=== PATIENT | female | born 1985 | race Hispanic/Latino ===

== ENCOUNTER → 2017-03-20 | Day surgery (SDC) | payer OTHER ==
[2017-03-20] VITALS (9 sets, daily range): BP systolic 102–121; BP diastolic 38–94; PULSE 73–107; RESP 14–18; O2SAT 98–100
[~2017-03-20] VITALS: Ht 152.4 cm; Wt 69.2 kg
[~2017-03-20] MED LIST: Bupivacaine-MPF 0.5% 30 mL Inj INFILTRATE ONE; CeFAZolin Inj 2 GM in Dextrose 5% 50 ML IV ONE; CeFAZolin Inj 2 gm / 50mL D5W IV ONE; Dexamethasone 4 mg/mL Inj IVPUSH PRN; Dexamethasone 4 mg/mL Inj ONE; EPHEDrine Sulfate 50 mg/mL Inj IVPUSH PRN; Gentamicin 40 mg/mL 2 mL Inj IRRIGATION ONE; HYDROmorphone 1 mg/mL Inj IVPUSH PRN; Lactated Ringer's 1,000 ML IV SCH; Lactated Ringer's 500 ML IV PRN; Lidocaine 1%-Epi 1:100,000 20 mL Inj INFILTRATE ONE; MetoCLOpramide 5 mg/mL 2 mL Inj IVPUSH PRN; MetoCLOpramide 5 mg/mL 2 mL Inj ONE; OMEP20TA86 PO; Ondansetron 2 mg/mL 2 mL Inj IVPUSH PRN; Ondansetron 2 mg/mL 2 mL Inj ONE; Phenylephrine 10,000 mCg/mL Inj IVPUSH PRN; Propofol 10,000 mCg/mL 20 mL Inj ONE; fentaNYL-PF 50 mCg/mL 2 mL Inj IVPUSH PRN; oxyCODONE-Acetamin 5-325 mg Tablet PO PRN
[2017-03-20] MEDS: Lactated Ringer's 1,000 ML IV SCH ×2 (09:22→11:55)
--- NOTE | 2017-03-20 11:38 | PCM.HPANE ---
Patient Data Surgeon Admitting Provider: Attending Provider:Tirso Johnson DPM Primary Care Physician:Lisa Sutherland MD Other Provider:Martha Lanceingham Anesthesia Reason for Visit Plantar Fasciitis Left Foot, Left Fastrocnemius Eq Ht/WT & BMI Height (Feet): 5 Height (Inches): 0 Weight (Kilograms): 69.2 Body Mass Index 29.00 Allergies Coded Allergies: No Known Allergies (Verified Allergy, Mild, 03/20/17) Past Anesthesia History Anesthesia History: Denies:: Abnormal Airway, Anesthesia Reactions, Difficult Intubation, Fam Anesthesia Reaction, Fam Malignant Hypertherm, Malignant Hyperthermia Diabetes History Hx Diabetes?: No MRSA MRSA: No Medications Hypertension Medication: No Home Meds Incl Beta Tiff: No Reported Medications Omeprazole 20 Mg Tablet.dr20 Mg PO DAILY 03/18/17 Discontinued Reported Medications Omeprazole 20 Mg Tablet.dr20 Mg PO DAILY 07/11/15 History History of ENT Problems?: No HEENT History: Denies:: Abnormal Airway Cataracts Difficult Intubation Dysphagia Glaucoma Hearing Problem Sinus Problem TMJ Denture Type: None Teeth Condition: Within Normal Limits Hx of Heart Problems?: No Cardiovascular History: Denies:: AICD Atrial Fibrillation Chest Pain Coronary Artery Disease Edema Heart Murmur Hypertension Irregular Heartbeat Pacemaker Valvular Heart Disease Hx of Respiratory Problem?: No Respiratory History: Denies:: Asthma COPD Cough Hemoptysis Oxygen Administration Pneumonia Tuberculosis Use of C-PAP Machine Hx Neurologic Problems?: No Neurological History: Denies:: Alzheimer's Disease CVA Dementia Multiple Sclerosis Parkinson's Disease Seizures TIA Hx of GI Problems?: Yes Hx of Problems?: No Genitourinary History: Denies:: Kidney Stones Urinary Tract Infection Female Hx: Denies:: Currently Problems with Breasts? Skin History: Denies:: History Skin Disorders? Pressure Ulcers Hx Musculoskeletal Problems?: Yes Musculoskeletal History: Positive for:: Back Injury (hx of back pain) Musculoskeletal Trauma (left foot current admission problem) Denies:: Degenerative Joint Fibromyalgia Joint Replacement Myasthenia Gravis Osteoarthritis Rheumatoid Arthritis Systemic Lupus Hx of Psycho/Social Problems?: No Psycho Social History: Denies:: Anxiety Hx Depression Hx Surgeries?: Yes (rody) Hx Any Other Health Problems?: Yes Other History: Denies:: Cancer Thyroid Disease History Blood Transfusions: Positive for:: Accept Blood Products? Denies:: Blood Transfusions Hx Diabetes: No Hx Alcohol Use: NoHx Substance Use: No Smoking Status: Never Smoker Have You Smoked inLast 12 mo: No Stop/Bang Treated for Sleep Apnea?: No Do You Have a CPAP Machine?: No S-Snoring: Do You Snore Loudly: No T-Tired: feel tired, fatigued: No O-Obsered: Observed not breath: No P-Blood Pressure: treated: No B- Body Mass Index > 35 kg/m2: No A- Age over 50: No N- Neck Large Circumference: No G- Gender Male: No CHECO Total Score: 0 CHECO Risk Assessment: Low Risk, <3 Yes Risk Assessment Category Category 1A: Patient has history of documented sleep apnea, and HAS NOT received any narcotic, sedative or anesthesia administration during this stay. Category 1B: Patient has history of documented sleep apnea, and HAS received any narcotic , sedative or anesthesia administration during this stay Category 2: Patient has SUSPECTED Obstructive Sleep Apnea, and HAS received any narcotic , sedative or anesthesia administration during this stay. Category 3: Patient has SUSPECTED Obstructive Sleep Apnea and HAS NOT received narcotic, sedative or anesthesia administration during this stay. Category 4: Outpatient in Procedural Areas with known sleep apnea or who screen positive for High Risk via the STOP/BANG questionnaire. Exam Exam Vital Signs Vital Signs Date Time Temp Pulse Resp B/P Pulse Ox O2 Delivery O2 Flow Rate FiO2 03/20/17 09:32 36.4 93 16 118/77 100 Room Air General Appearance: Oriented X3 HEENT/AIRWAY: MP 2 Lungs: Normal Air Movement Heart: Regular Rate/Rhythm Meds/Labs/Diagnostics Admission Meds Current Medications Lactated Ringer's (Lr) 1,000 ml @ 120 mls/hr Q8H20M IV Last administered on t 09:22; Start 03/20/17 at 05:00; Stop 03/20/17 at 13:19 Plan Impression Patient chart reviewed, patient interviewed and anesthestic plan with risks, benefits, and alternatives discussed, and informed consent obtained. ASA Physical Status: ASA2 Mod Systemic Disease Anesthetic Plan: GA Bene/Risks/Altern/Consents: Yes HP Complete Prior to Induction: Yes Arian Owen MD Mar 20, 2017 11:38
--- NOTE | 2017-03-20 13:48 | PCM.ANEP1 ---
Post Anesthesia PACU Phase 1 Assessment Vital Signs Vital Signs Date Time Temp Pulse Resp B/P Pulse Ox O2 Delivery O2 Flow Rate FiO2 03/20/17 13:44 95 17 105/51 100 Simple Mask 8 03/20/17 13:40 92 18 109/42 100 Simple Mask 8 03/20/17 13:36 37.0 97 17 113/38 99 Simple Mask 8 03/20/17 09:32 36.4 93 16 118/77 100 Room Air Anesthetic Administered: GA Level of Alertness: Awake, talking Pain: No Nausea or Vomiting: No CV Function & Hydration Stable: Yes Airway Device: Oralpharangeal Airway Lungs: Normal Air Movement PACU Phase 2 Assessment Patient Instructions Provided: N/A Arian Owen MD Mar 20, 2017 13:48
--- NOTE | 2017-03-20 14:00 | PCM.PODPO ---
Podiatry Operative Report Date of Service: Mar 20, 2017 Date of Service Mar 20, 2017 Pre Operative Diagnosis Chronic plantar fasciitis, Espitia's neuritis and gastrocnemius equinus left Post Operative Diagnosis Same Procedure #1 gastrocnemius recession left #2 release of Espitia's nerve and subtotal plantar fasciectomy left Surgeon Surgeon: Tirso Johnson DPM Assistants: None Indication for Procedure Same Findings Same Details of Procedure Patient was brought to the operating suite and placed on the table in the supine position. Surgical timeout was observed. Upon initiation of general anesthesia by the anesthesiologist anatomic landmarks were marked in the sites infiltrated with 18 cc 1% lidocaine with epinephrine and 0.5% Marcaine without epinephrine in a one-to-one mix. The extremity was prepped and draped in the usual aseptic manner. Attention was directed to the gastrocnemius aponeurosis where an approximately 2 cm linear incision was made slightly medial to midline. Incision was deepened via sharp and blunt dissection with care taken to retract the lesser saphenous vein answer all nerve. The paratenon was incised in a linear manner and the gastrocnemius aponeurosis exposed. Transverse sectioning was performed utilizing a #67 Pauma blade. The ankle was dorsiflexed approximately 1.5 cm of lengthening was achieved allowing the ankle to attain +5-10 of dorsiflexion. The site was copiously irrigated, peritenon repaired with 4-0 Vicryl, subcutaneous tissues with 4-0 Vicryl, skin with 3-0 Prolene. Attention was directed to the plantar medial heel where an approximately 7 cm incision was made. This incision was deepened via sharp and blunt dissection. Self-retaining retractors were applied and adipose tissue was debrided with a rongeur forcep. The deep fascia was incised exposing the abductor hallucis muscle belly. Utilizing a curved hemostat to protect the underlying neurovascular structures the deep fascia was incised proximally performing a distal tarsal tunnel release. The abductor halluces muscle was retracted plantarly and the fascia between the abductor hallucis and quadratus plantar a was released. The muscle was then retracted dorsally and the remainder of the fascia released from distal to proximal. Next the medial band of the plantar fascia was identified and a 1 x 1 cm sectioning performed of the medial band. The site was digitized to confirm full release of the fascia deep to the abductor hallucis no constrictive bands were noted. The site was copiously irrigated with antibiotic solution, saphenous tissues were approximated with 3- 0 Vicryl and skin with 3-0 Prolene. Additional local anesthetic of approximately 4 cc 0.5% Marcaine was infiltrated. Antibiotic ointment Adaptic dressing was applied followed by a mildly compressive bandage to both sites. Well-padded posterior fiberglass splint was applied with the ankle in 90. The patient was extubated uneventfully and left the operating suite in apparently satisfactory condition. There were no complications. Grafts, Implants: None Complications There were no periprocedural complications identified. Condition Stable Anesthetic Administered: GA Drains: None Catheters: None Output, Estimated Blood Loss: 5 Blood Admin during surgery: No Surgical Cast or Splint: None Surgical Specimen Removed: No Specimen sent to Pathology: No Post Operative Plan Postoperative instructions have been dispensed in writing and reviewed verbally , return appointment made 5 days postop Tirso Johnosn DPM Mar 20, 2017 14:00
== END | disposition home or self-care (01) ==
LOC: SAS 08:46
PROVIDERS: ATTEND Podiatrist
DX: M21.6X2 Other acquired deformities of left foot (principal); M72.2 Plantar fascial fibromatosis; G58.8 Other specified mononeuropathies; R73.03 Prediabetes; D13.4 Benign neoplasm of liver; F32.9 Major depressive disorder, single episode, unspecified
CPT/HCPCS: 27687; 28060; 64704; J0690; J1100; J1580; J1885; J2405; J2704; J2765; J7120